=== PATIENT | female | born 1955 | race Caucasian/White ===

== ENCOUNTER 2017-10-12 14:15 | Emergency (ER) | payer OTHER ==
[~2017-10-12] VITALS: Ht 160 cm; Wt 61.2 kg
[2017-10-12 15:40] LABS: ABSOLUTE BASOPHIL COUNT 0 /CUMM (0.0-0.2); ABSOLUTE EOSINOPHIL COUNT 0.1 /CUMM (0.0-0.7); ABSOLUTE GRANULOCYTE CT 7.9 /CUMM (1.4-6.5); ABSOLUTE LYMPH COUNT 1.8 /CUMM (1.2-3.4); ABSOLUTE MONOCYTE COUNT 0.7 /CUMM (0.10-0.60); BASOPHIL % 0.4 % (0.0-2.0); EOSINOPHIL % 1.1 % (0-5); HEMATOCRIT 38.9 % (37-47); MEAN CORPUSCULAR HGB 31.5 PG (27.0-31.0); MEAN CORPUSCULAR HGB CONC 33.8 G/DL (33.0-37.0); MEAN CORPUSCULAR VOLUME 93.3 FL (81.0-99.0); MEAN PLATELET VOLUME 6.8 FL (7.4-10.4); PLATELET COUNT 321 /CUMM (130-400); RBC DISTRIBUTION WIDTH 13.1 % (11.5-14.5); RED BLOOD CELL CT 4.17 /CUMM (4.20-5.40); WHITE BLOOD CELL COUNT 10.5 /CUMM (4.8-10.8)
--- NOTE | 2017-10-12 16:21 | CT SCAN REPORT ---
EXAMINATION: CT ABD PELVIS W/O IV CONTRAS CLINICAL INFORMATION: Abdominal pain kidney stones mass COMPARISON: None TECHNIQUE: Multidetector volumetric imaging was performed from the superior aspect of the liver through the pubic symphysis 100 mL of Omnipaque 300 injected Sagittal and coronal reformatted images were obtained on the technologist's workstation. DLP: 235 mGy-cm FINDINGS: LOWER THORAX: Included lung bases are clear. HEPATOBILIARY: No focal hepatic lesions. No biliary ductal dilatation. GALLBLADDER: Gallbladder unremarkable. SPLEEN: Spleen is normal in size. PANCREAS: No focal mass or ductal dilatation. STOMACH AND GASTROINTESTINAL TRACT: Stomach is grossly unremarkable. There is excess amount of stool in the rectum suggesting possible mild fecal impaction. No CT evidence of appendicitis. There is diverticulosis without evidence of acute diverticulitis. ADRENALS: No adrenal nodules. KIDNEYS/URETERS: No hydronephrosis, stones or solid mass lesions. URINARY BLADDER: There is a Parr catheter, the urinary bladder is decompressed unopacified. PELVIC VISCERA: There are pelvic ossifications felt to be phleboliths. PERITONEUM: No free air or fluid. LYMPH NODES: No lymphadenopathy. VASCULAR:Abdominal aorta normal in size, no aneurysm found. BONES, ABDOMINAL WALL AND SOFT TISSUES: Age-appropriate changes of the spine and skeletal system, no destructive osteolytic or osteosclerotic bone lesion found IMPRESSION: Study limited by lack of contrast and crowding of bowels, 1. No CT evidence of renal stones or hydronephrosis. 2. Excess amount of stool in the colon and rectum suggesting possible fecal impaction. 3. Parr catheter is in the urinary bladder which is decompressed. 4. Diverticulosis without evidence of acute diverticulitis.
--- NOTE | 2017-10-12 16:58 | ED GI/GU/ABDOMINAL COMPLAINT ---
History of Present Illness General Chief Complaint: General Adult Stated Complaint: CONSTIPATION URINARY RETENTION Source: patient Exam Limitations: no limitations Vital Signs & Intake/Output Vital Signs & Intake/Output Vital Signs Date Time Temp Pulse Resp B/P B/P Pulse O2 O2 Flow FiO2 Mean Ox Delivery Rate 10/12 1620 99.2 85 18 131/84 94 Room Air 10/12 1456 Room Air 10/12 1436 98.6 102 18 140/95 96 Room Air Allergies Coded Allergies: No Known Allergies (10/12/17) Triage Note: RECEIVED 61 YO FEMALE C/O UNABLE TO HAVE A BOWEL MOVEMENT X 3 DAYS AND FEELS LIKE SHE IS UNABLE TO URINATE. PT URINATED THIS AM. PT EXTREMELY UNCOMFORTABLE IN TRIAGE. Triage Nurses Notes Reviewed? yes LMP (ages 10-50): unknown ? N Is pt currently ? No Onset: Abrupt Duration: day(s): (3), constant, continues in ED, getting worse Timing: remote history Quality/Severity: dullness, fullness Severity Numbers: 7 Location: generalized abdomen Radiation: no radiation Activities at Onset: none Prior Abdominal Problems: similar symptoms Past Sexual History: Unobtainable at this time No Modifying Factors: none HPI: 61-year-old female history of asthma and constipation presents for evaluation of constipation and urinary retention. Patient reports she has not had a bowel movement in 3 days. She states that she has been straining on the toilet to have a bowel movement but has not been successful. She states that today while she was trying to have a bowel movement and straining she noticed she was also unable to urinate. She states she has the urge to urinate but feels like nothing will come out. She states she had a similar episode about a year ago where she developed urinary retention related to constipation. She denies any fever or back pain vaginal discharge or vaginal bleeding. The last time she urinated was last night. She states she usually goes the bathroom every day. She denies any drug or alcohol use medication changes. No nausea or vomiting. She does report some abdominal distention fullness. (Casper Mariano) Past History Travel History Traveled to [place] past 21 day No Medical History Any Pertinent Medical History? see below for history Neurological: NONE EENT: NONE Cardiovascular: NONE Respiratory: asthma Gastrointestinal: NONE Hepatic: NONE Renal: NONE Musculoskeletal: NONE Endocrine: NONE Blood Disorders: NONE Surgical History Surgical History: non-contributory Psychosocial History What is your primary language Ma[place] Tobacco Use: Current Daily Use Daily Tobacco Use Amount/Type: => 5 Cigarettes daily Family History Hx Contributory? No (Casper Mariano) Review of Systems Review of Systems Constitutional: Reports: no symptoms. EENTM: Reports: no symptoms. Respiratory: Reports: no symptoms. Cardiovascular: Reports: no symptoms. GI: Reports: see HPI, bloating, constipation. Genitourinary: Reports: see HPI, urgency. Musculoskeletal: Reports: no symptoms. Skin: Reports: no symptoms. Neurological/Psychological: Reports: no symptoms. Hematologic/Endocrine: Reports: no symptoms. Immunologic/Allergic: Reports: no symptoms. All Other Systems: Reviewed and Negative (Casper Mariano) Physical Exam Physical Exam General Appearance: well developed/nourished, no apparent distress, alert, awake Head: atraumatic, normal appearance Eyes: Bilateral: normal appearance, PERRL, EOMI. Ears, Nose, Throat, Mouth: hearing grossly normal, moist mucous membrane Neck: normal inspection, supple, full range of motion Respiratory: normal breath sounds, chest non-tender, no respiratory distress, lungs clear Cardiovascular: regular rate/rhythm, normal peripheral pulses Peripheral Pulses: 2+ radial (R), 2+ radial (L) Gastrointestinal: normal bowel sounds, soft, no organomegaly, distention ( SUPRAPUBIC), tenderness (SUPRAPUBIC ) Back: normal inspection, normal range of motion, no vertebral tenderness Extremities: normal range of motion Neurologic/Psych: no motor/sensory deficits, awake, alert, oriented x 3, normal gait Skin: intact, normal color, warm/dry Core Measures ACS in differential dx? No Sepsis Present: No Sepsis Focused Exam Completed? No (Casper Mariano) Progress Differential Diagnosis: bowel obstruction, ischemic bowel, inflamm bowel dis, kidney stone, PID/cervicitis, SBO, UTI/pyelo, URINARY RETENTION, MALIGNANCY Plan of Care: Orders Procedure Date/time Status Enema 10/12 1641 Active Parr, Insertion/Removal/Asses 10/12 1502 Active CULTURE,URINE 10/12 1502 Active URINALYSIS 10/12 1502 Complete TROPONIN LEVEL 10/12 1502 Complete LIPASE 10/12 1502 Complete COMPREHENSIVE METABOLIC PANEL 10/12 1502 Complete CBC WITHOUT DIFFERENTIAL 10/12 1502 Complete Laboratory Tests 10/12/17 1530: Urine Color YEL, Urine Clarity CLEAR, Urine pH 6.0, Ur Specific [place] 1.010, Urine Protein NEG, Urine Ketones NEG, Urine Nitrite NEG, Urine Bilirubin NEG, Urine Urobilinogen 0.2, Ur Leukocyte Esterase NEG, Ur Microscopic SEDIMENT EXAMINED, Urine RBC RARE, Ur Epithelial Cells RARE, Urine Hemoglobin TRACE- INTACT, Urine Glucose NEG 10/12/17 1525: Anion Gap 7, Estimated GFR > 60, BUN/Creatinine Ratio 25.0, Glucose 92, Calcium 9.8, Total Bilirubin 0.4, AST 33, ALT 43, Alkaline Phosphatase 62, Troponin I < 0.01, Total Protein 6.7, Albumin 4.2, Globulin 2.5, Albumin/Globulin Ratio 1.7, Lipase 135, CBC w Diff NO MAN DIFF REQ, RBC 4.17 L, MCV 93.3, MCH 31.5 H, MCHC 33.8, RDW 13.1, MPV 6.8 L, Gran % 75.0, Lymphocytes % 16.8 L, Monocytes % 6.7, Eosinophils % 1.1, Basophils % 0.4, Absolute Granulocytes 7.9 H, Absolute Lymphocytes 1.8, Absolute Monocytes 0.7 H, Absolute Eosinophils 0.1, Absolute Basophils 0 Microbiology 10/12 1530 URINE ROUT: Urine Culture - RECD Patient presents for evaluation of constipation and urinary retention. On initial evaluation her supra pubic area is distended. Bladder scan reveals large amounts of urine in the bladder. A Parr catheter was placed which drained nearly 1600 mL of urine patient reports feeling much better. Blood work urinalysis are unremarkable. A CT scan of the abdomen pelvis shows a large amount of stool in the colon without obstruction. Patient was administered an enema and was able to have a large bowel movement. Spoke with Dr. WHITLEY from urology who recommends leaving the Parr catheter in place and patient will follow-up with Dr. Metzger. Patient refuses to have the Parr catheter in place at discharge. Discussed with patient about the possibility that the catheter will need to be replaced or she could've permanent damage to her bladder she understands these risks she still with the catheter removed. The catheter was removed patient was able to urinate on her own before discharge. Advised her to still follow up with urology. Discussed prevention of constipation in the future increase fluids HIGH FIBER foods stool softeners. Patient agrees with the plan Diagnostic Imaging: Viewed by Me: CT Scan. Discussed w/RAD: CT Scan. Radiology Impression: PATIENT: FCO DAVIS PRESENT AGE: 61 PATIENT ACCOUNT NO: [id number] : 59 LOCATION: [facility] ORDERING PHYSICIAN: Casper FUENTES SERVICE DATE: 10/12/17 EXAM TYPE: CAT - CT ABD & PELVIS W/O IV CONTRAS EXAMINATION: CT ABD PELVIS W/O IV CONTRAS CLINICAL INFORMATION: Abdominal pain kidney stones mass COMPARISON: None TECHNIQUE: Multidetector volumetric imaging was performed from the superior aspect of the liver through the pubic symphysis 100 mL of Omnipaque 300 injected Sagittal and coronal reformatted images were obtained on the technologist's workstation. DLP: 235 mGy-cm FINDINGS: LOWER THORAX: Included lung bases are clear. HEPATOBILIARY: No focal hepatic lesions. No biliary ductal dilatation. GALLBLADDER: Gallbladder unremarkable. SPLEEN: Spleen is normal in size. PANCREAS: No focal mass or ductal dilatation. STOMACH AND GASTROINTESTINAL TRACT: Stomach is grossly unremarkable. There is excess amount of stool in the rectum suggesting possible mild fecal impaction. No CT evidence of appendicitis. There is diverticulosis without evidence of acute diverticulitis. ADRENALS: No adrenal nodules. KIDNEYS/ URETERS: No hydronephrosis, stones or solid mass lesions. URINARY BLADDER: There is a Parr catheter, the urinary bladder is decompressed unopacified. PELVIC VISCERA: There are pelvic ossifications felt to be phleboliths. PERITONEUM: No free air or fluid. LYMPH NODES: No lymphadenopathy. VASCULAR:Abdominal aorta normal in size, no aneurysm found. BONES, ABDOMINAL WALL AND SOFT TISSUES: Age- appropriate changes of the spine and skeletal system, no destructive osteolytic or osteosclerotic bone lesion found IMPRESSION: Study limited by lack of contrast and crowding of bowels, 1. No CT evidence of renal stones or hydronephrosis. 2. Excess amount of stool in the colon and rectum suggesting possible fecal impaction. 3. Parr catheter is in the urinary bladder which is decompressed. 4. Diverticulosis without evidence of acute diverticulitis. DICTATED BY: Jayant EDWARDS,Jennifer DATE/TIME DICTATED:10/12/171604 URGENT CARE:[facility] DATE/TIME TRANSCRIBED:08/25/18 / 1605 CONFIDENTIAL, DO NOT COPY WITHOUT APPROPRIATE AUTHORIZATION. <Electronically signed in Other Vendor System Initial ED EKG: none (Casper Mariano) Departure Departure Disposition: HOME OR SELF CARE Condition: Stable Clinical Impression Primary Impression: Urine retention Referrals: Puma EDWARDS,Matt Mendez (PCP/Family) Willam Metzger MD Additional Instructions: Follow-up with a urologist as soon as possible. You been referred to Dr. Metzger. Eat a high-fiber diet. Drink plenty of fluids. Monitor symptoms closely return with any concerns. Departure Forms: Customer Survey General Discharge Information (Casper Mariano) PA/MGMT CONSULTANT Co-Sign Statement Statement: ED Attending supervision documentation- [] I saw and evaluated the patient. I have also reviewed all the pertinent lab results and diagnostic results. I agree with the findings and the plan of care as documented in the PA's/MGMT CONSULTANT's documentation. [X] I have reviewed the ED Record and agree with the PA's/MGMT CONSULTANT's documentation. [] Additions or exceptions (if any) to the PAs/MGMT CONSULTANT's note and plan are summarized below: [] (Evan Garrtet DO)
[2017-10-12 18:27] VITALS: BP 129/79
== END 2017-10-12 18:28 ==
LOC: ERH 14:15
PROVIDERS: Physician Assistant Medical
DX: R33.9 Retention of urine, unspecified (principal)
CPT/HCPCS: 74176; 81001; 87086